=== PATIENT | male | born 2000 | race Caucasian/White ===

== ENCOUNTER 2022-10-24 11:25 | Emergency (ER) | payer OTHER, MEDICAID, SELFPAY ==
[2022-10-24 11:32] VITALS: BP 134/78; PULSE 97; RESP 16; TEMP 37.2; O2SAT 97; BMI 36.2
--- NOTE | 2022-10-24 11:38 | ED.WOUNDLAC ---
HPI - Wound/Laceration <VIRA Flores - Last Filed: 10/24/22 12:41> General Chief Complaint: Wound/Laceration Stated Complaint: wound infected Time Seen by Provider: 10/24/22 11:36 History of Present Illness HPI narrative: This is a 22-year-old male who presents emergency department with recurrent boils, states that they are primarily in his right groin region but he is complaining about recurrent pilonidal cyst that has been drained numerous times. He states over the last year has started becoming more of a nuisance and recurrent. He is concerned about infection, states that he has been cleaning with isopropyl alcohol. States it has a mild amount of drainage. No bleeding, denies any swelling or redness surrounding. States he has a right lesion as well but is around her full, isn't have any further drainage anything it boil. Denies fever chills, denies any pruritus but states it starts out as pruritic and then opens up after he uses compresses. Related Data Previous Rx's Medication Instructions Recorded benzoyl peroxide 5 % topical 1 applic topical Q OTHER DAY #237 10/24/22 cleanser grams mupirocin 2 % topical ointment 1 applic topical DAILY #22 grams 10/24/22 Allergies Allergy/AdvReac Type Severity Reaction Status Date / Time No Known Drug Allergies Allergy Verified 10/24/22 11:35 Review of Systems <VIRA Flores - Last Filed: 10/24/22 12:41> Review of Systems ROS Unobtainable: All systems reviewed & are unremarkable except as noted in HPI and below Patient History <VIRA Flores - Last Filed: 10/24/22 12:41> Social History Smoking Status: Former smoker Smoking Status: Former smoker Substance Use Type: marijuana Exam <VIRA Flores - Last Filed: 10/24/22 12:41> Narrative Exam Narrative: Reviewed vitals signs and nursing notes. General: Pleasant, sitting upright, in no acute distress, well groomed, afebrile HEENT: symmetrical facial expressions, moist mucous membranes, neck is supple CV: regular rate and rhythm, warm extremities Respiratory: normal work of breathing, without tachypnea or hypoxia. GI: abdomen soft, nondistended, without CVA tenderness bilaterally. MSK: moves all extremities, no weakness, normal tone, ambulatory without deficit Skin: brisk capillary refill, multiple small boils to the right groin without erythema, 1 is approximately a Center, it is open, no drainage, no fluctuance or surrounding erythema, unlikely to be cellulitic at this time, nontender to palpation, firm with scar tissue. Pilonidal cyst is not fluctuant, no surrounding erythema, a mild amount of discharges present in draining, palpated and there is no depth to the wound, use a Q-tip and probed the whole wound and there was no loculations or deep space/abscess palpable. It does not communicate with the anus. It is not erythematous. Neuro: clear speech and normal cognition, A&O x3, GCS 15, no focal motor or sensation deficits Initial Vital Signs Initial Vital Signs: Vital Signs Temperature 98.9 F 10/24/22 11:32 Pulse Rate 97 H 10/24/22 11:32 Respiratory Rate 16 10/24/22 11:32 Blood Pressure 134/78 10/24/22 11:32 Pulse Oximetry 97 10/24/22 11:32 Oxygen Delivery Method Room Air 10/24/22 11:32 <Prashant Price DO - Last Filed: 10/25/22 07:12> Initial Vital Signs Initial Vital Signs: Vital Signs Temperature 98.9 F 10/24/22 11:32 Pulse Rate 97 H 10/24/22 11:32 Respiratory Rate 16 10/24/22 11:32 Blood Pressure 134/78 10/24/22 11:32 Pulse Oximetry 97 10/24/22 11:32 Oxygen Delivery Method Room Air 10/24/22 11:32 Course <GLENN FloresP - Last Filed: 10/24/22 12:41> Orders Ordered: Discontinued Medications Hydrocodone Bitart/Acetaminophen (Hydrocodone/Acet 5/325 Tablet) 1 tab PO NOW ONE Stop: 10/24/22 11:38 Last Admin: 10/24/22 11:50 Dose: Not Given Documented By: BEN Ketorolac Tromethamine (Ketorolac 30 Mg/Ml Vial) 15 mg IM NOW ONE Stop: 10/24/22 11:38 Last Admin: 10/24/22 11:53 Dose: 15 mg Documented By: RB Lidocaine/Epinephrine (Lidocaine 2% W/Epi Inj) 20 ml INJ INTRA-OP ONE Stop: 10/24/22 11:38 Last Admin: 10/24/22 11:54 Dose: Not Given Documented By: RB Vital Signs Vital signs: Vital Signs - 8 hr 10/24/22 11:32 10/24/22 12:02 Temperature 98.9 F Pulse Rate 97 H 82 Respiratory Rate 16 20 Blood Pressure 134/78 134/68 Pulse Oximetry 97 98 Oxygen Delivery Method Room Air Room Air <Prashant Price DO - Last Filed: 10/25/22 07:12> Orders Ordered: Discontinued Medications Hydrocodone Bitart/Acetaminophen (Hydrocodone/Acet 5/325 Tablet) 1 tab PO NOW ONE Stop: 10/24/22 11:38 Last Admin: 10/24/22 11:50 Dose: Not Given Documented By: RB Ketorolac Tromethamine (Ketorolac 30 Mg/Ml Vial) 15 mg IM NOW ONE Stop: 10/24/22 11:38 Last Admin: 10/24/22 11:53 Dose: 15 mg Documented By: RB Lidocaine/Epinephrine (Lidocaine 2% W/Epi Inj) 20 ml INJ INTRA-OP ONE Stop: 10/24/22 11:38 Last Admin: 10/24/22 11:54 Dose: Not Given Documented By: RB Vital Signs Vital signs: Vital Signs - 8 hr 10/24/22 11:32 10/24/22 12:02 Temperature 98.9 F Pulse Rate 97 H 82 Respiratory Rate 16 20 Blood Pressure 134/78 134/68 Pulse Oximetry 97 98 Oxygen Delivery Method Room Air Room Air MDM - Wound/Laceration <VIRA Flores - Last Filed: 10/24/22 12:41> MDM Narrative Medical decision making narrative: Chief Complaint: Recurring tailbone cyst Multiple etiologies for patient's complaint considered including, but not limited to: Pilonidal cyst, abscess, hidradenitis suppurativa, folliculitis, staph infection I have independently reviewed the patient's vital signs and nursing notes as well as prior records if available. Plan: Wound culture of the pilonidal cyst, Course of Care: Prescribed benzyl peroxide for groin cleansing to use once every other day, open lesions he can use mupirocin ointment to cover after warm compresses. He is encouraged to continue with good hygiene and cleaning off slough tissue. He is given contact information for [facility] to schedule surgical removal of his pilonidal cyst. We will follow up on wound culture and prescribed antibiotics if necessary. Patient states understanding and was given pain control while here in the emergency department, prescription of skin cleanser and mupirocin ointment. Social considerations that may affect disposition: none Questions are addressed and there is agreement with the plan and for follow-up. I consulted with the ED attending physician Dr. Price as needed for higher level of care considerations and they were available for discussion and recommendations regarding plan of care and diagnostic testing. Patient is appropriate for outpatient management. Discharge Plan Departure Patient Disposition: Home Clinical Impression: Folliculitis, Pilonidal cyst without infection Instructions: Hidradenitis Suppurativa, Pilonidal Cyst, Folliculitis Activity Restrictions/Additional Instructions: *You have been diagnosed with a recurrent pilonidal cyst. You have some clogged pores in the genital region which is sometimes related to folliculitis, could be standard boils, or hidradenitis suppurativa. You can use the topical antibiotic ointment to prevent infection of this, you have done a good job with hygiene to prevent these from getting infected. Please continue with warm compresses, gentle cleansing, avoid isopropyl alcohol as this damages the new skin cells. Please schedule follow-up with [facility] for surgical removal of your pilonidal cyst. This does not appear infected today, please continue with the warm compresses and use topical antibiotic ointment as necessary. You can use a topical steroid ointment in the groin region to help the skin cells turn over quicker like hydrocortisone cream. Use the cleanser on the skin without lesions and use the topical antibiotic ointment and a gentle cleanser over the open lesions. Use ibuprofen and Tylenol for pain, ibuprofen is helpful for the inflammatory lesions. We will call you if the wound culture suggests you need oral antibiotics. Otherwise we will try and save this for when you develop an infection. *What to do: *Please continue to take your regular medications as directed. [ ] New medication prescriptions sent to your pharmacy: [ ] [x ] New medication written as a paper prescription [ ] No new medications given *Please call and schedule follow up with your primary care provider in 2-3 days, at least for an update. Let them know you were seen in the Emergency Department for the above problem. We will electronically transmit a record of today's note if your PCP or specialist is in our system. *If you do not have a primary care provider please contact [phone] to establish care with one of the [facility] primary care providers. *Return to the Emergency Department for worsening symptoms, inability to keep liquids down, fever greater than 101F, chills, or other concerning symptom. Prescriptions: New mupirocin 2 % ointment 1 applic topical DAILY Qty: 22 0RF benzoyl peroxide 5 % cleanser 1 applic topical Q OTHER DAY Qty: 237 0RF Referrals: [facility] [Provider Group] Van Franco MD [Physician] - Stand Alone Forms: Patient Portal/API <Prashant Price DO - Last Filed: 10/25/22 07:12> Cosign ED Attending Jkaeature Attestation: I was immediately available in the department for consultation. Documentation has been reviewed. I agree with assessment and plan.
[2022-10-24] MEDS: KETOROLAC 30 MG/ML VIAL 15 MG IM (11:53)
[2022-10-24 12:02] VITALS: BP 134/68; PULSE 82; RESP 20; O2SAT 98
== END 2022-10-24 12:03 | disposition home or self-care (01) ==
PROVIDERS: Emergency Provider Nurse Practitioner Critical Care Medicine
DX: L73.9 Follicular disorder, unspecified (principal); L05.91 Pilonidal cyst without abscess
CPT/HCPCS: 87070; 87205; 96372; 99283; J1885

== ENCOUNTER → 2023-09-11 15:05 | Outpatient (CLI) | payer OTHER, MEDICAID, SELFPAY | PROVIDERS: Visit Provider Registered Nurse | DX: L72.9 Follicular cyst of the skin and subcutaneous tissue, unspecified (principal) | CPT/HCPCS: 87070; 87075; 87205 ==

== ENCOUNTER 2023-10-21 10:03 | Emergency (ER) | payer OTHER, MEDICAID, SELFPAY ==
--- NOTE | 2023-10-21 10:13 | DI.RAD.S_ITS ---
PROCEDURE: XR RIBS RT MIN 3V W CXR 1V INDICATIONS: fall/ rib pain TECHNIQUE: 2 views of the ribs were acquired, along with a single view chest. COMPARISON: None. FINDINGS: Surgical changes and devices: None. Bones and chest wall: No fractures or dislocations. No suspicious bony lesions. Overlying soft tissues appear unremarkable. Lungs and pleura: No pleural effusions or pneumothorax. Lungs appear clear. Mediastinum: Mediastinal contours appear normal. Heart size is normal. IMPRESSION: No displaced rib fracture or pneumothorax. Dictated by: Michael Christianson M.D. on 10/21/2023 at 12:16 Approved by: Michael Christianson M.D. on 10/21/2023 at 12:17
[2023-10-21 10:15] VITALS: BP 133/90; PULSE 88; RESP 24; TEMP 37; O2SAT 99; BMI 41.6
--- NOTE | 2023-10-21 10:16 | ED_ITS ---
HPI - General Adult General Chief complaint: Trauma Stated complaint: rib pain, diff breathing, fell off longboard Time Seen by Provider: 10/21/23 10:07 History of Present Illness HPI narrative: Otherwise healthy 23-year-old young man was long boarding, fell and landed on his right ribs. Complaining of pain in the lower ribs right side posterior axillary line and posterior ribs completely. No obvious bruising, subcutaneous air and no difficulty breathing. Pain is becoming increasingly worse. It happened just prior to arrival he has no other complaints Related Data Previous Rx's Medication Instructions Recorded mupirocin 2 % topical ointment 1 applic topical BID #22 grams 09/11/23 bupropion HCl 150 mg 24 hr tablet, 150 mg PO QAM #30 tabs 09/17/23 extended release Allergies Allergy/AdvReac Type Severity Reaction Status Date / Time No Known Drug Allergies Allergy Verified 10/20/23 15:39 Review of Systems Review of Systems Narrative: Pertinent positive and negative findings as per HPI Patient History Social History marital status: unmarried,single details: Pt. lives with his Fiance', mother and brother household members: significant other and family lives independently: Yes Smoking Status: Never smoker alcohol intake: current (social, 1-2 per week) substance use type: marijuana (daily) Smoking Status: Never smoker Substance Use Type: marijuana Exam Narrative Exam Narrative: General: Alert appropriate in mild distress Respiratory: Able to speak in full sentences, no obvious respiratory distress. No subcutaneous air. He is tender right lower posterior clavicular line. No wheezing, symmetrical breath sounds Skin: No obvious rashes, warm and dry Neurologic: Grossly intact no obvious asymmetries or abnormalities Psych: appropriate insight and affect, cooperative Initial Vital Signs Initial Vital Signs: Vital Signs Temperature 98.6 F 10/21/23 10:15 Pulse Rate 88 10/21/23 10:15 Respiratory Rate 24 10/21/23 10:15 Blood Pressure 133/90 10/21/23 10:15 Pulse Oximetry 99 10/21/23 10:15 Oxygen Delivery Method Room Air 10/21/23 10:15 Course Orders Ordered: ED Orders 10/21/23 10:13 XR ribs RT min 3V w CXR1V Stat Discontinued Medications Acetaminophen (Acetaminophen 325 Mg Tablet) 325 mg PO NOW ONE Stop: 10/21/23 10:19 Last Admin: 10/21/23 10:36 Dose: 325 mg Documented By: GAYE Ibuprofen (Ibuprofen 400 Mg Tablet) 400 mg PO NOW ONE Stop: 10/21/23 10:19 Last Admin: 10/21/23 10:36 Dose: 400 mg Documented By: GAYE Vital Signs Vital signs: Vital Signs - 8 hr 10/21/23 10:15 10/21/23 10:22 10/21/23 12:05 Temperature 98.6 F Temperature [1015] 98.6 F Pulse Rate 88 67 Pulse Rate [1015] 88 Respiratory Rate 24 18 Respiratory Rate [1015] 24 Blood Pressure 133/90 143/64 H Blood Pressure [1015] 133/90 Pulse Oximetry 99 97 Pulse Oximetry [1015] 99 Oxygen Delivery Method Room Air Room Air Oxygen Delivery Method [1015] Room Air Medical Decision Making [facility] Narrative Medical decision making narrative: CC: Long voiding accident with right posterior rib pain Data collected from: patient Differential considered: Contusion, fracture, Exam documented above, pertinent findings include: Tenderness over the right ribs but able to speak in full sentences, no subcutaneous air. No no hematoma or abrasion Imaging studies independently reviewed: No obviously displaced rib fractures or pneumothorax Treatments: Oral ibuprofen and Tylenol Discussion: 23-year-old young man fell off his long board. Right posterior rib contusion without fractures or pneumothorax. Discussed anticipated course of pain, reasons to return to the emergency department. Recommended ibuprofen, Tylenol, ice and heat. No additional imaging lab work or hospitalization is indicated today. He is safe for discharge Discharge Plan Departure Patient Disposition: Home Clinical Impression: Rib contusion Qualifiers: Encounter type: initial encounter Laterality: right Qualified Code(s): S20.211A - Contusion of right front wall of thorax, initial encounter Instructions: DI for Rib Contusion Activity Restrictions/Additional Instructions: Thank you for coming in today Fortunately your x-ray does not show any obvious rib fractures or collapsed lung. You clearly have bruised a couple of the ribs on the right side and you are going to hurt. Unfortunately, the pain is going to be worse in the 1st 48 hours. It will improve after that. Allow your pain to limit your activities. You are not going to make things worse with any activities but you may have increased pain overall. Using 400 mg of ibuprofen (2 lmnm-[id number]-yekmdyu pills) and 1 Tylenol every 6 hours can be very helpful in controlling pain. If you find that you are getting worse or develop any new symptoms, please feel free to return to the emergency department for further evaluation. Prescriptions: No Action mupirocin 2 % ointment 1 applic topical BID Qty: 22 0RF bupropion HCl 150 mg tablet extended release 24 hr 150 mg PO QAM Qty: 30 2RF Referrals: Krish Corbin MD [Primary Care Provider] - Stand Alone Forms: Patient Portal/API
[2023-10-21 10:22] VITALS: BP 133/90; PULSE 88; RESP 24; TEMP 37; O2SAT 99
[2023-10-21] MEDS: ACETAMINOPHEN 325 MG TABLET PO (10:36)
[2023-10-21] MEDS: IBUPROFEN 400 MG TABLET PO (10:36)
--- NOTE | 2023-10-21 11:06 | PC.NURSE ---
Pt states that tylenol and ibuprofen helped pain. states now at 6/10 pain. pt able to sit down and no longer tachypneic. RR 20
[2023-10-21 12:05] VITALS: BP 143/64; PULSE 67; RESP 18; O2SAT 97
== END 2023-10-21 12:32 | disposition home or self-care (01) ==
PROVIDERS: Emergency Provider Emergency Medicine; PCP Family Medicine
DX: S20.211A Contusion of right front wall of thorax, initial encounter (principal); W18.30XA Fall on same level, unspecified, initial encounter
CPT/HCPCS: 71101; 99283

== ENCOUNTER 2023-11-04 10:33 | Day surgery (SDC) | payer OTHER, MEDICAID, SELFPAY ==
[2023-11-02 08:40] VITALS: BMI 40.1
[2023-11-04] VITALS (9 sets, daily range): BP systolic 114–144; BP diastolic 56–89; PULSE 78–99; RESP 14–18; TEMP 36–36.3; O2SAT 93–98
--- NOTE | 2023-11-04 | PATH_ITS ---
[facility] Accession Number: [id number] No. of containers..01 Tissue . 01 Material submitted: . body - PILONIDAL CYST . 01 Diagnosis: PILONIDAL CYST, EXCISION: Cystic epidermal invagination with surrounding dense mixed inflammation and free hair shafts, consistent with the clinical concern for pilonidal disease/cyst; see comment. MRV 11/09/2023 1215 Local . 01 Comment: The findings are not entirely specific; however, they are compatible with the clinical concern for pilonidal disease/cyst. Additional histologic considerations include a ruptured suppurative folliculitis. A PAS fungal stain is negative for fungal hyphae. . 01 Electronically signed: . Dylon Marie MD, Dermatopathologist NPI- [id number] . 01 Gross description: . Received in formalin with two patient identifiers and pilonidal cyst, is an unoriented ellipse of skin, 10.4 x 3.9 x 3.0 cm. The cutaneous surface is torres with a defect near one end, 0.4 x 0.3 cm. The margin is inked blue, and sectioning reveals a cystic structure located adjacent to the aforementioned cutaneous defect filled with a small amount of torres grumous material and measuring 1.3 cm in greatest dimension. A b2b sales representative section is submitted in A1. ([id number]) /MRV 11/05/2023 1628 Local . 01 Pathologist provided ICD-10: L05.01 . 01 CPT . 696997, [id number] Specimen Comment: A courtesy copy of this report has been sent to [phone] Performed at: [address] [id number] MD Gordon Chatterjee MD Phone: [phone]
[2023-11-04] MEDS: LACTATED RINGERS 1,000 ML 21 ML IV (10:42)
[2023-11-04] MEDS: ACETAMINOPHEN IV 1,000 MG/100 ML VIAL 400 MG IV (10:44)
--- NOTE | 2023-11-04 10:54 | P.HP_ITS ---
History of Present Illness History of Present Illness Date Patient Seen: 11/04/23 Time Patient Seen: 11:25 Chief complaint: [place] procedure Narrative: 23M with pilonidal cyst disease here for Layla procedure. No interval change in health [facility] Social History marital status: unmarried,single details: Pt. lives with his Fiance', mother and brother household members: significant other and family lives independently: Yes Smoking Status: Never smoker alcohol intake: current substance use type: marijuana (daily) Meds Home Medications and Allergies Home Medications Medication Instructions Recorded Confirmed Type mupirocin 2 % topical ointment 1 applic topical BID #22 grams 09/11/23 11/04/23 Rx bupropion HCl 150 mg 24 hr tablet, 150 mg PO QAM #30 tabs 09/17/23 11/04/23 Rx extended release Allergies Allergy/AdvReac Type Severity Reaction Status Date / Time No Known Drug Allergies Allergy Verified 11/04/23 11:01 Exam Narrative Exam Narrative: Gen-Adult man alert and oriented Assessment & Plan Assessment and plan (1) Pilonidal cyst: Status: Chronic Assessment & Plan narrative: 23M with pilonidal cyst here for Layla procedure. Overview of operation discussed. Risks including hemorrhage, infection, reoccurence, chronic wound reviewed. Questions answered and consents to proceed. Time-Based Coding :: [TOTAL MINUTES] spent with patient and on the chart (including review of chart, obtaining history, exam, reviewing outside data, placing orders, documenting exam and treatment plan, and counseling patient) on [DATE].
[2023-11-04] MEDS: CEFAZOLIN VIAL 3 GM in SODIUM CHLORIDE 0.9% 100 ML IV (11:35)
--- NOTE | 2023-11-04 11:54 | SUR.OPER ---
Prone on padded OR bed, head in foam head support, gel chest rolls, gel pad under knees, pillow under lower legs, toes free of pressure, arms secured on padded arm boards at <90 degrees abduction. Safety belt at thigh.
[2023-11-04] MEDS: BUPIVACAINE 0.25% (PF) VIAL 30 ML INJ ×2 (11:57→12:14)
[2023-11-04] MEDS: ONDANSETRON 4 MG/2 ML INJ IV (12:56)
[2023-11-04] MEDS: LORazepam 2 MG/ML INJ 0.25 MG IV (12:57)
[2023-11-04] MEDS: hydrOXYzine 50 MG/ML INJ 25 MG IM (13:15)
[2023-11-04] MEDS: KETOROLAC 30 MG/ML VIAL IV (13:57)
--- NOTE | 2023-11-04 17:12 | P.OP_ITS ---
Operative Date/Time/Diagnoses Date of procedure: 11/04/23 Time of procedure: 17:12 Pre-op diagnosis: pilonidal cyst Post-op diagnosis: same Procedure & Clinicians Procedure: [place], cleft lift procedure Same procedure as scheduled: Yes Indications: 23-year-old man with symptomatic pilonidal cyst disease Surgeon: Van Franco Interactive Graphic Designer: Thai Pichardo Anesthesia Type: General Operative Notes Findings: 8 cm section of active pilonidal cyst disease with extensive tunneling within the gluteal cleft. Specimen(s): none sent (Pilonidal cyst) Estimated Blood Loss (mL): 30 Procedure in detail: Patient was brought to the operating room. General anesthesia was induced he was intubated with an endotracheal tube. He was then placed into the prone position and appropriately padded. He was then prepped and draped in sterile fashion time-out was performed. He received 3 g of Ancef prior to of the operation. We outlined the area just outside of the cleft where the buttocks would naturally touch one another. We marked a skin island within this in order to encompass all of the pilonidal cyst disease. 30 mL of 0.25% Marcaine were used to infiltrate the skin. The medial aspect of the skin island was incised down to the level of the subcutaneous tissue. We raised a skin flap on the adjacent side. The tape was released and we could see how far the flap would advance beyond the midline to the opposite side. With this the island of skin/active disease was excised and passed off the field as specimen. Hemostasis was achieved. The wound was then closed in 3 layers using interrupted PDS suture. A Fifteen Bulgarian drain was placed deep within the wound cavity secured using nylon. Skin was closed using Monocryl followed by the application of Dermabond. He was placed supine and extubated. He Tolerated the procedure well was transferred to recovery in stable condition sponge and i nstrument count was correct x2 Complications: none Post-operative Condition: stable Disposition: same day surgery
== END 2023-11-04 14:55 | disposition home or self-care (01) ==
PROVIDERS: PCP Family Medicine; Referring Provider Surgery; Visit Provider Surgery
PROC: (CPT 11772; principal; 2023-11-04 11:15)
DX: L05.91 Pilonidal cyst without abscess (principal)
CPT/HCPCS: 11772; J0136; J0330; J0690; J1100; J1885; J2060; J2250; J2405; J2704; J3010; J3410

== ENCOUNTER 2024-06-26 09:38 | Emergency (ER) | payer OTHER, SELFPAY ==
[2024-06-26 09:44] VITALS: BP 130/66; PULSE 73; RESP 16; TEMP 36.6; O2SAT 98; BMI 41.3
--- NOTE | 2024-06-26 09:51 | DI.RAD.S_ITS ---
PROCEDURE: XR WRIST LT MIN 3V INDICATIONS: fall, FOOSH, wrist and thumb pain TECHNIQUE: For views of the wrist were acquired. COMPARISON: None. FINDINGS: Bones: No fractures or dislocations. No suspicious bony lesions. Soft tissues: No suspicious soft tissue calcifications. IMPRESSION: No acute bony abnormality. If there is concern for occult fracture consider conservative treatment and reimaging in 7-10 days Dictated by: Jitendra Harris M.D. on 06/26/2024 at 9:18 Approved by: Jitendra Harris M.D. on 06/26/2024 at 9:19
[2024-06-26] MEDS: ACETAMINOPHEN 325 MG TABLET 975 MG PO (10:11)
[2024-06-26] MEDS: IBUPROFEN 400 MG TABLET 800 MG PO (10:12)
--- NOTE | 2024-06-26 11:37 | ED_ITS ---
HPI - Fall <Lisa Solis PA-C - Last Filed: 06/26/24 12:40> General Chief Complaint: Fall Stated Complaint: Fell off long board, head, R knee left hand pain Time Seen by Provider: 06/26/24 11:37 History of Present Illness HPI Narrative: 24-year-old male presents on his own for a fall from his long board skateboard, he was [place] in [place] on the [place] when he lost his balance and fell forward. He impacted his left palm, right knee and right brow. He denied any precipitating events, there was no loss of consciousness, he recalls the incident in great detail. He states he is fallen off his board before. He was wearing his prescription glasses and those impacted his brow where he sustained a bruise and abrasion. He is denying any vision changes, no changes in his hearing, no headache, no sensitivity to light, no neck pain, he was able to am bulate and take himself to the emergency department. His tetanus is up-to-date as of 2019 following a finger laceration. He does not take any aspirin or blood thinners. He has no underlying health issues except per his record, anxiety, depression, pilonidal cyst, marijuana usage. 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 He is right-handed dominant. He is denying any elbow, wrist, shoulder pain, no injuries to his trunk. No treatment tried except some soap and water cleanse of his abrasions. All other systems are reviewed and are negative. Related Data Previous Rx's Medication Instructions Recorded acetaminophen 325 mg capsule 650 mg (2 x 325 mg) PO QID PRN 11/04/23 (Tylenol) pain #60 caps sertraline 50 mg tablet 200 mg (4 x 50 mg) PO DAILY #120 06/03/24 tabs Allergies Allergy/AdvReac Type Severity Reaction Status Date / Time No Known Drug Allergies Allergy Verified 06/03/24 12:03 Review of Systems <Lisa Solis PA-C - Last Filed: 06/26/24 12:40> Review of Systems Narrative: All other systems reviewed and are negative. Patient History <Lisa Solis PA-C - Last Filed: 06/26/24 12:40> Social History marital status: unmarried,single details: Pt. lives with his Fiance', mother and brother household members: significant other and family lives independently: Yes alcohol intake: current substance use type: marijuana (daily) alcohol intake frequency: holidays/special occasions only Exam <Lisa Solis PA-C - Last Filed: 06/26/24 12:40> Initial Vital Signs Initial Vital Signs: Vital Signs Temperature 97.8 F 06/26/24 09:44 Pulse Rate 73 06/26/24 09:44 Respiratory Rate 16 06/26/24 09:44 Blood Pressure 130/66 06/26/24 09:44 Pulse Oximetry 98 06/26/24 09:44 Oxygen Delivery Method Room Air 06/26/24 09:44 Vital signs reviewed and are normal. Const Other: Smiling, alert and oriented x4, seated, no distress. HENMI Head: normocephalic, abrasion and hematoma Ears: hearing grossly normal bilaterally, external ears normal, TM's normal bilaterally, EAC's normal and mastoids normal Nose: external nose normal, nares normal, nasal mucous membranes and turbinates normal, septum normal and No epistaxis Face and sinus: sinuses nontender Mouth: oral mucosae normal, lip normal, tongue normal and oropharynx normal Teeth and gingiva: dentition normal and gingiva normal Eyes Visual Ceballos: normal visual ceballos by confrontation Alignment and Position: alignment normal Periorbital: periorbital findings abnormal right (Right brow ridge contusion, superficial abrasion 1 in in diameter, no active bleeding) Eyelids: eyelid abnormality right upper eyelid (Swelling, no erythema, no foreign body, movement intact. Mild tenderness.) Conjunctivae: conjunctivae normal Sclera: sclerae normal Pupils: PERRL, normal by confrontation and accommodation normal EOM: EOM intact bilaterally Other: Visual acuity intact to fingers. With and without his prescription glasses. Neck Neck: normal visual inspection, full ROM, trachea midline and supple Other: Full active ROM without pain elicited. No focal bony midline tenderness. Chest Chest: normal inspection of the chest Resp Effort & Inspection: normal respiratory effort Auscultation: clear to auscultation bilaterally Cardio Rate: regular rate Rhythm: regular rhythm Back/Spine/Pelvis Back: normal to inspection and No back tenderness Skin Other: Superficial abrasion right brow ridge, right anterior knee, left palm, all measure approximately 1 in in diameter at its greatest, no active bleeding to any of the areas, left palm had some devitalized skin that was easily trimmed, no signs of any foreign body or gravel. Neuro General: patient alert, patient awake and patient oriented x3 Cranial Nerves: CN's II-XI intact bilaterally Extrem General: normal to inspection, full ROM and capillary refill normal Other: Ambulatory, no focal deficits. Full active range of motion of his right knee, full active range of motion of his left hand all digits, pinch mechanism is intact, no snuffbox tenderness, full active range of motion of the wrist, no findings of his forearm wrist or shoulder on the left. Nails intact. <Felisa Warren DO - Last Filed: 06/27/24 08:42> Initial Vital Signs Initial Vital Signs: Vital Signs Temperature 97.8 F 06/26/24 09:44 Pulse Rate 73 06/26/24 09:44 Respiratory Rate 16 06/26/24 09:44 Blood Pressure 130/66 06/26/24 09:44 Pulse Oximetry 98 06/26/24 09:44 Oxygen Delivery Method Room Air 06/26/24 09:44 Procedures <CRISTINA Headley Last Filed: 06/26/24 12:40> [facility] Procedure Name of Procedure: Wound care, debridement left palm of hand Time out performed: Yes Patient tolerated procedure: Well Complications: none Additional Comments: He was brought to the sink where he self performed soap and water cleanse with a surgical scrub brush, there was no active bleeding, some small pieces of devitalized skin were easily trimmed with an iris scissors. Wound was inspected, it is superficial, there was no foreign body or gravel. No active bleeding, no signs of infection. Wound was then dressed with bacitracin ointment, nonadherent dressing and roller gauze, well-tolerated, distal neurovascular remains intact. The wound itself was approximately 1 in in diameter, the pieces trimmed were about 2-3 mm in length, no complications well- tolerated. Scores <CRISTINA Headley Last Filed: 06/26/24 12:40> Nexus Score for C-Spine Citation:: No neck pain, full active range of motion, no distracting injuries, no evidence of EtOH, no headache, no loss of consciousness. Course <Lisa Solis PA-C - Last Filed: 06/26/24 12:40> Orders Ordered: Discontinued Medications Acetaminophen (Acetaminophen 325 Mg Tablet) 975 mg PO NOW ONE Stop: 06/26/24 09:58 Last Admin: 06/26/24 10:11 Dose: 975 mg Documented By: CTS Bacitracin (Bacitracin Oint 0.9 Gm Pckt) 1 applic TOP NOW ONE Stop: 06/26/24 11:52 Last Admin: 06/26/24 12:08 Dose: 1 applic Documented By: SB Ibuprofen (Ibuprofen 400 Mg Tablet) 800 mg PO NOW ONE Stop: 06/26/24 09:58 Last Admin: 06/26/24 10:12 Dose: 800 mg Documented By: CTS Vital Signs Vital signs: Vital Signs - 8 hr 06/26/24 09:44 Temperature 97.8 F Pulse Rate 73 Respiratory Rate 16 Blood Pressure 130/66 Pulse Oximetry 98 Oxygen Delivery Method Room Air <Felisa Warren DO - Last Filed: 06/27/24 08:42> Orders Ordered: Discontinued Medications Acetaminophen (Acetaminophen 325 Mg Tablet) 975 mg PO NOW ONE Stop: 06/26/24 09:58 Last Admin: 06/26/24 10:11 Dose: 975 mg Documented By: CTS Bacitracin (Bacitracin Oint 0.9 Gm Pckt) 1 applic TOP NOW ONE Stop: 06/26/24 11:52 Last Admin: 06/26/24 12:08 Dose: 1 applic Documented By: SB Ibuprofen (Ibuprofen 400 Mg Tablet) 800 mg PO NOW ONE Stop: 06/26/24 09:58 Last Admin: 06/26/24 10:12 Dose: 800 mg Documented By: CTS Vital Signs Vital signs: Vital Signs - 8 hr 06/26/24 09:44 Temperature 97.8 F Pulse Rate 73 Respiratory Rate 16 Blood Pressure 130/66 Pulse Oximetry 98 Oxygen Delivery Method Room Air MDM - Fall <Lisa Solis PA-C - Last Filed: 06/26/24 12:40> Imaging Data Extremity x-ray #1: My Impression: Deferred to radiologist's interpretation below. Radiologist's Impression: Patient: Florin Maldonado MR#: [id number] : 2000 Acct:[id number] Age/Sex: 24 / M Date of Service: 06/26/24 Loc: ED Accession Number: [id number] Procedure: XR wrist LT min 3V Ordering Provider: Felisa Warren D.O. PROCEDURE: XR WRIST LT MIN 3V INDICATIONS: fall, FOOSH, wrist and thumb pain TECHNIQUE: For views of the wrist were acquired. COMPARISON: None. FINDINGS: Bones: No fractures or dislocations. No suspicious bony lesions. Soft tissues: No suspicious soft tissue calcifications. IMPRESSION: No acute bony abnormality. If there is concern for occult fracture consider conservative treatment and reimaging in 7-10 days Dictated by: Jitendra Harris M.D. on 06/26/2024 at 9:18 Approved by: Jitendra Harris M.D. on 06/26/2024 at 9:19 MDM Narrative Medical decision making narrative: Ground level fall with his skateboard, there was no loss of consciousness, his main issues were some superficial abrasions to his left palm, right anterior knee, right brow ridge, he takes no blood thinners, he is denying any headache, neck pain or vision changes. He wears prescription glasses in his vision is intact. His tetanus is up-to-date as of 2019. Basic wound care was performed soap and water cleanse with surgical scrub brush to his palm, devitalized skin was removed, dressed with bacitracin and roller gauze in addition a nonadherent bandage. We discussed wound care at length, we also discussed red flag warning signs in detail. Please do not hesitate to return to the emergency department if you develop any worsening signs, any signs of infection, any headache, vomiting, vision changes, neck pain, any new injuries that he may not have been aware of the time, he is encouraged to rest, elevate, ice, Tylenol ibuprofen as needed for pain. 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 Discharge Plan Departure Patient Disposition: Home Clinical Impression: Fall from skateboard, initial encounter Abrasion hand Qualifiers: Encounter type: initial encounter Laterality: left Qualified Code(s): S60.512A - Abrasion of left hand, initial encounter Contusion, brow Qualifiers: Encounter type: initial encounter Qualified Code(s): S00.83XA - Contusion of other part of head, initial encounter Abrasion of knee, right Qualifiers: Encounter type: initial encounter Qualified Code(s): S80.211A - Abrasion, right knee, initial encounter Abrasion of brow Qualifiers: Encounter type: initial encounter Qualified Code(s): S00.81XA - Abrasion of other part of head, initial encounter Instructions: DI for Eye Contusion, DI for Abrasion Activity Restrictions/Additional Instructions: Please do daily wound care, monitor for any signs of infection, this includes swelling, pain, redness or drainage or fever, your black eye might get larger before it resolved so continue icing over a washcloth 10-15 minutes at a time several times per day, Tylenol or ibuprofen as needed for pain, keep her activity light. Do not hesitate to return if you have any new symptoms such as any nausea, headache, neck pain, generally feeling unwell or any other concerns we are open 24 hours. Do wear a glove to keep those dressings dry but do cleanse daily and change those dressings daily to your knee, hand and you may put a bandage over your brow use sunscreen to minimize any scarring for the next year and it is good to have sunscreen for your face and skin as a preventive measure and moisturizer. Prescriptions: No Action sertraline 50 mg tablet 200 mg PO DAILY Qty: 120 2RF Rx Instructions: Take 150mg daily for 2 weeks then increase to 200mg daily acetaminophen [Tylenol] 325 mg capsule 650 mg PO QID PRN (Reason: pain) Qty: 60 0RF Referrals: Krish Corbin MD [Primary Care Provider] - Stand Alone Forms: Patient Portal/API/Survey ED Sign-out <Felisa Warren DO - Last Filed: 06/27/24 08:42> Cosign ED Attending Jakeature Attestation: I was available for consultation.
[2024-06-26 12:02] VITALS: BP 133/67; PULSE 59; RESP 16; TEMP 36.6; O2SAT 98
[2024-06-26] MEDS: BACITRACIN OINT 0.9 GM PCKT 1 APPLIC TOP (12:08)
== END 2024-06-26 12:10 | disposition home or self-care (01) ==
PROVIDERS: Emergency Provider Physician Assistant Medical; PCP Family Medicine
DX: S60.512A Abrasion of left hand, initial encounter (principal); S80.211A Abrasion, right knee, initial encounter; S00.81XA Abrasion of other part of head, initial encounter; V00.131A Fall from skateboard, initial encounter; Y93.51 Activity, roller skating (inline) and skateboarding
CPT/HCPCS: 73110; 97597; 99283